=== PATIENT | male | born 1945 ===

== ENCOUNTER 2024-02-25 17:31 | Emergency (ER) | payer MEDICARE, OTHER | END 2024-02-25 19:44 | LOC: DL.ED 17:31 | DX: S72.011A Unspecified intracapsular fracture of right femur, initial encounter for closed fracture (principal); I10 Essential (primary) hypertension; E11.9 Type 2 diabetes mellitus without complications; F17.210 Nicotine dependence, cigarettes, uncomplicated; W19.XXXA Unspecified fall, initial encounter | CPT/HCPCS: 73700; 82947; 99284; 99285 ==

== ENCOUNTER 2024-03-05 11:47 | Inpatient (IN) | payer MEDICARE, OTHER ==
[2024-03-05] MEDS ORDERED: Ondansetron 4 MG/2 ML SDV IVPUSH PRN (12:56)
[2024-03-05] MEDS: Lidocaine 5% 700 MG Patch TOP SCH (14:14)
[2024-03-05] MEDS: amLODIPine 5 MG Tab PO SCH (14:17)
[2024-03-05] MEDS: Metoprolol Succinate 50 MG Tab.ER PO SCH (14:18)
[2024-03-05] MEDS: Acetaminophen 500 MG Tab PO SCH ×2 (14:18→22:05)
[2024-03-05] MEDS: Insulin Lispro 100 Units/ML 3 ML Vial SUBCUT SCH ×2 (17:03→20:59)
[2024-03-05] MEDS: atorvaSTATin 20 MG Tab PO SCH (21:07)
[2024-03-05] MEDS: Apixaban 5 MG Tab PO SCH (21:07)
[2024-03-05] MEDS: oxyCODONE 5 MG Tab PO PRN (21:07)
[2024-03-05] MEDS: Insulin Glarg,Human.Rec.Analog 100 Unit/ML 10 ML Vial SUBCUT SCH (21:08)
[2024-03-05] MEDS: Melatonin 3 MG Tab PO PRN (22:05)
[2024-03-06] MEDS: Check Patch TRDERM SCH ×2 (02:38→21:36)
[2024-03-06 06:48] LABS: HEMATOCRIT 40.6 % (40.0-54.0); HEMOGLOBIN 13.2 g/dL (14.0-18.0); MEAN CORPUSCULAR HEMOGLOBIN 29.9 pg (27.0-34.0); MEAN CORPUSCULAR HGB CONC 32.5 g/dL (33.0-35.0); MEAN CORPUSCULAR VOLUME 92.1 fL (80-100); RED BLOOD CELL COUNT 4.41 10^6/uL (4.6-6.2)
[2024-03-06 07:08] LABS: ANION GAP 10.7 mEq/L (7-13); CALCIUM 8.5 mg/dL (8.5-10.1); CREATININE 0.76 mg/dL (0.70-1.30); EST CRCL DRUG DOSING (CG) 90.53 mL/min; POTASSIUM,K 3.7 mmol/L (3.5-5.1)
[2024-03-06] MEDS: Fenofibrate Nanocrystallized 145 MG Tab PO SCH (09:24)
[2024-03-06] MEDS: Losartan 50 MG Tab PO SCH (09:24)
[2024-03-06] MEDS: Hydrochlorothiazide 25 MG Tab PO SCH (09:25)
[2024-03-06] MEDS: Lidocaine 5% 700 MG Patch TOP SCH (09:26)
[2024-03-06] MEDS: Nicotine 7 MG/24 Hr Patch TRDERM SCH (16:22)
[2024-03-06] MEDS: Check Patch *NICOTINE TRDERM SCH (21:40)
[2024-03-07] MEDS: Docusate Sodium 100 MG Cap PO PRN (21:25)
[2024-03-08] MEDS: Melatonin 3 MG Tab PO PRN (20:50)
[2024-03-11] MEDS: Spironolactone 25 MG Tab PO SCH (09:23)
[2024-03-11] MEDS: ENTRESTO PO SCH (10:57)
[2024-03-14 06:23] LABS: HEMATOCRIT 41.8 % (40.0-54.0); HEMOGLOBIN 13.7 g/dL (14.0-18.0); MEAN CORPUSCULAR HEMOGLOBIN 30.2 pg (27.0-34.0); MEAN CORPUSCULAR HGB CONC 32.8 g/dL (33.0-35.0); MEAN CORPUSCULAR VOLUME 92.1 fL (80-100); RED BLOOD CELL COUNT 4.54 10^6/uL (4.6-6.2); WHITE BLOOD CELL COUNT,WBC 11.8 10^3/uL (5.0-10.0)
[2024-03-14 06:38] LABS: ANION GAP 11.7 mEq/L (7-13); CALCIUM 8.9 mg/dL (8.5-10.1); CREATININE 0.86 mg/dL (0.70-1.30); POTASSIUM,K 3.7 mmol/L (3.5-5.1)
[2024-03-14] MEDS: diphenhydrAMINE 25 MG Tab PO PRN (21:15)
[2024-03-17 08:02] LABS: ANION GAP 6.5 mEq/L (7-13); CALCIUM 8.9 mg/dL (8.5-10.1); CREATININE 0.98 mg/dL (0.70-1.30); EST CRCL DRUG DOSING (CG) 70.21 mL/min; POTASSIUM,K 3.5 mmol/L (3.5-5.1)
== END 2024-03-17 08:00 | disposition home or self-care (01) | DRG 560 ==
LOC: DL.MS 11:47 → UNDOADMIN 11:47 → DL.MS 12:56
PROVIDERS: ADMIT Internal Medicine; ATTEND Internal Medicine
DX: S72.011D Unspecified intracapsular fracture of right femur, subsequent encounter for closed fracture with routine healing (principal); I50.22 Chronic systolic (congestive) heart failure; I11.0 Hypertensive heart disease with heart failure; E78.00 Pure hypercholesterolemia, unspecified; I51.3 Intracardiac thrombosis, not elsewhere classified; E11.9 Type 2 diabetes mellitus without complications; Z79.4 Long term (current) use of insulin; Z79.01 Long term (current) use of anticoagulants; Z79.899 Other long term (current) drug therapy; W01.0XXD Fall on same level from slipping, tripping and stumbling without subsequent striking against object, subsequent encounter
CPT/HCPCS: 36415; 80048; 82947; 85027; 97110-GO; 97110-GP; 97116-GP; 97161-GP; 97165-GO; 97530-GO; 97530-GP; 97535-GO; A9270-GY; J1815-GY

== ENCOUNTER 2024-07-13 10:06 | Inpatient (IN) | payer MEDICARE, OTHER ==
[2024-07-13] MEDS ORDERED: Metoclopramide 10 MG Tab PO PRN (11:52)
[2024-07-13] MEDS ORDERED: HYDROmorphone 0.5 MG/0.5 ML Syringe IM PRN (11:52)
[2024-07-13] MEDS ORDERED: Albuterol/Ipratropium 3.0-0.5 MG/3 ML Neb Soln NEB PRN (11:52)
[2024-07-13] MEDS ORDERED: Polyethylene Glycol 3350 Powder 17 GM Packet PO PRN (11:52)
[2024-07-13] MEDS ORDERED: Naloxone 2 MG/2 ML Syringe IVPUSH PRN (11:52)
[2024-07-13] MEDS ORDERED: Acetaminophen/oxyCODONE 325-5 MG Tab PO PRN (11:52)
[2024-07-13] MEDS ORDERED: Sennosides/Docusate Sodium 50-8.6 MG Tab PO PRN (11:52)
[2024-07-13] MEDS ORDERED: Ondansetron 4 MG Tab.DIS PO PRN (11:52)
[2024-07-13] MEDS ORDERED: Melatonin 3 MG Tab PO PRN (11:52)
[2024-07-13] MEDS ORDERED: Magnesium Hydroxide 400 MG/5 ML Susp 30 ML Cup PO PRN (11:52)
[2024-07-13] MEDS ORDERED: oxyCODONE 5 MG Tab PO PRN (13:10)
[2024-07-13] MEDS ORDERED: Glucagon,Human Recombinant 1 MG Vial IM PRN (13:13)
[2024-07-13] MEDS ORDERED: 50% Dextrose in Water 50 ML Syringe IVPUSH PRN (13:13)
[2024-07-13] MEDS ORDERED: Naloxone HCl 4 MG Spray 2 Pack NAS SCH (13:15)
[2024-07-13 15:39] LABS: ALBUMIN 2.5 g/dL (3.4-5.0); BILIRUBIN TOTAL 0.6 mg/dL (0.2-1.0); BUN/CREATININE RATIO 16.2 (No establ ref range); CREATININE 1.17 mg/dL (0.70-1.30); EST CRCL DRUG DOSING (CG) 57.86 mL/min
[2024-07-13 15:40] LABS: A/G RATIO 0.71
[2024-07-13 15:42] LABS: HEMOGLOBIN A1C 5.9 % (<5.7)
[2024-07-13] MEDS: Insulin Lispro 100 Units/ML 3 ML Vial SUBCUT SCH (17:35)
[2024-07-13] MEDS: Cephalexin 500 MG Cap PO SCH (18:32)
[2024-07-13] MEDS: Carvedilol 6.25 MG Tab PO SCH (18:35)
[2024-07-13] MEDS ORDERED: Empagliflozin 10 MG Tab PO SCH (21:00)
[2024-07-13] MEDS ORDERED: Amiodarone 200 MG Tab PO SCH (21:00)
[2024-07-13] MEDS: atorvaSTATin 20 MG Tab PO SCH (22:03)
[2024-07-13] MEDS: Apixaban 5 MG Tab PO SCH (22:03)
[2024-07-13] MEDS: Insulin Glarg,Human.Rec.Analog 100 Unit/ML 10 ML Vial SUBCUT SCH (22:04)
[2024-07-13] MEDS: Acetaminophen 325 MG Tab PO PRN (22:46)
[2024-07-14] MEDS: Pantoprazole 40 MG Tab.CR PO SCH (05:49)
[2024-07-14] MEDS: Nicotine 21 MG/24 Hr Patch TRDERM SCH (08:16)
[2024-07-14] MEDS: Potassium Chloride 10 MEQ Tab.ER PO SCH (08:25)
[2024-07-14] MEDS: Fenofibrate Nanocrystallized 145 MG Tab PO SCH (08:27)
[2024-07-14] MEDS: Bumetanide 1 MG Tab PO SCH (08:27)
[2024-07-14] MEDS: Amiodarone 200 MG Tab PO SCH (08:27)
[2024-07-14] MEDS: Ferrous Sulfate 325 MG Tab PO SCH (08:27)
[2024-07-14] MEDS: Aspirin 81 MG Tab.EC PO SCH (08:27)
[2024-07-14] MEDS ORDERED: Bumetanide 1 MG Tab PO SCH (09:00)
[2024-07-14] MEDS ORDERED: Non-Formulary Medication 1 Each (Insulin Glargine,Hum.Rec.Anlog 100 UNIT/ML Insuln.Pen) SUBCUT SCH (09:00)
[2024-07-14] MEDS: Lidocaine 5% 700 MG Patch TOP SCH (15:58)
[2024-07-14] MEDS: Check Patch TRDERM SCH (20:50)
[2024-07-14] MEDS: Insulin Glarg,Human.Rec.Analog 100 Unit/ML 10 ML Vial SUBCUT SCH (20:54)
[2024-07-20 06:28] LABS: BASOPHILS PERCENT AUTO 0.7 % (0.0-1.0); EOSINOPHILS PERCENT AUTO 6.9 % (1.0-3.0); HEMATOCRIT 36.9 % (40.0-54.0); HEMOGLOBIN 11.3 g/dL (14.0-18.0); LYMPHOCYTES PERCENT AUTO 16.9 % (20.5-50.1); MEAN CORPUSCULAR HEMOGLOBIN 29.5 pg (27.0-34.0); MEAN CORPUSCULAR HGB CONC 30.6 g/dL (33.0-35.0); MEAN CORPUSCULAR VOLUME 96.3 fL (80-100); NEUTROPHILS PERCENT AUTO 67.5 % (42.2-75.2); PLATELET COUNT,PLT 409 10^3/uL (150-450); RED BLOOD CELL COUNT 3.83 10^6/uL (4.6-6.2); WHITE BLOOD CELL COUNT,WBC 9.9 10^3/uL (5.0-10.0)
[2024-07-20 06:59] LABS: ALBUMIN 2.5 g/dL (3.4-5.0); ANION GAP 10.7 mEq/L (7-13); BILIRUBIN TOTAL 0.6 mg/dL (0.2-1.0); BUN/CREATININE RATIO 22.3 (No establ ref range); CALCIUM 8.3 mg/dL (8.5-10.1); CREATININE 1.12 mg/dL (0.70-1.30); EST CRCL DRUG DOSING (CG) 60.44 mL/min; MAGNESIUM 2.2 mg/dL (1.8-2.4); POTASSIUM,K 3.7 mmol/L (3.5-5.1); PROTEIN TOTAL,TP 6.6 g/dL (6.4-8.2)
[2024-07-20 07:00] LABS: A/G RATIO 0.61
[2024-07-23 06:43] LABS: BASOPHILS PERCENT AUTO 0.8 % (0.0-1.0); EOSINOPHILS PERCENT AUTO 7.8 % (1.0-3.0); HEMATOCRIT 38.5 % (40.0-54.0); HEMOGLOBIN 11.8 g/dL (14.0-18.0); LYMPHOCYTES PERCENT AUTO 18.1 % (20.5-50.1); MEAN CORPUSCULAR HEMOGLOBIN 29.4 pg (27.0-34.0); MEAN CORPUSCULAR HGB CONC 30.6 g/dL (33.0-35.0); MEAN CORPUSCULAR VOLUME 95.8 fL (80-100); MONOCYTES PERCENT AUTO 7.8 % (2-8); NEUTROPHILS PERCENT AUTO 65.5 % (42.2-75.2); PLATELET COUNT,PLT 338 10^3/uL (150-450); RED BLOOD CELL COUNT 4.02 10^6/uL (4.6-6.2); WHITE BLOOD CELL COUNT,WBC 8.9 10^3/uL (5.0-10.0)
[2024-07-23 07:20] LABS: ANION GAP 9.5 mEq/L (7-13); CALCIUM 8.5 mg/dL (8.5-10.1); CREATININE 0.98 mg/dL (0.70-1.30); EST CRCL DRUG DOSING (CG) 69.07 mL/min; POTASSIUM,K 3.5 mmol/L (3.5-5.1)
[2024-07-25] MEDS ORDERED: Amiodarone 200 MG Tab PO SCH (09:00)
[2024-07-25] MEDS ORDERED: Bumetanide 1 MG Tab PO SCH (09:00)
== END 2024-07-24 16:50 | disposition home or self-care (01) | DRG 949 ==
LOC: DL.MS 11:56
PROVIDERS: ADMIT Internal Medicine; ATTEND Internal Medicine
DX: Z48.812 Encounter for surgical aftercare following surgery on the circulatory system (principal); I50.22 Chronic systolic (congestive) heart failure; R53.1 Weakness; I25.10 Atherosclerotic heart disease of native coronary artery without angina pectoris; J44.9 Chronic obstructive pulmonary disease, unspecified; I48.0 Paroxysmal atrial fibrillation; I11.0 Hypertensive heart disease with heart failure; G47.33 Obstructive sleep apnea (adult) (pediatric); K21.9 Gastro-esophageal reflux disease without esophagitis; D50.9 Iron deficiency anemia, unspecified; Z96.641 Presence of right artificial hip joint; M19.90 Unspecified osteoarthritis, unspecified site; E78.00 Pure hypercholesterolemia, unspecified; E11.649 Type 2 diabetes mellitus with hypoglycemia without coma; E88.09 Other disorders of plasma-protein metabolism, not elsewhere classified; I51.3 Intracardiac thrombosis, not elsewhere classified; Z95.1 Presence of aortocoronary bypass graft; Z79.4 Long term (current) use of insulin; Z79.01 Long term (current) use of anticoagulants; Z86.718 Personal history of other venous thrombosis and embolism; Z85.51 Personal history of malignant neoplasm of bladder; Z87.81 Personal history of (healed) traumatic fracture; Z79.899 Other long term (current) drug therapy; Z88.8 Allergy status to other drugs, medicaments and biological substances; Z79.82 Long term (current) use of aspirin
CPT/HCPCS: 36415; 71046; 80048; 80053; 82947; 83036; 83735; 83880; 85025; 97110-GO; 97110-GP; 97116-GP; 97161-GP; 97165-GO; 97530-GO; 97530-GP; 97535-GO; 99306; 99309; 99315; A9270-GY; J1815-GY